=== PATIENT | male | born 1990 | race Caucasian/White ===

== ENCOUNTER 2020-10-12 09:15 | Emergency (ER) | payer BC, SELFPAY ==
[2020-10-12 09:37] VITALS: BP 109/68; PULSE 121; RESP 16; TEMP 37.2; O2SAT 96; BMI 35.7
--- NOTE | 2020-10-12 10:28 | ED_ITS ---
HPI - Animal Bite General Chief Complaint: Animal Bite Stated Complaint: dog bite Time Seen by Provider: 10/12/20 09:41 Source: patient, family and RN notes reviewed Mode of arrival: ambulatory Limitations: no limitations History of Present Illness HPI narrative: 30-year-old male is here today after sustaining animal bite. Patient reports that he was going home from fishing all night, saw a dog running towards him, he got scared and he kicked the dog to protect himself. The dog bit him in the genital area. Patient reports that he did not break the fabric of his pants, however he reports that he's bleeding. Patient does not know if the dog was vaccinated for rabies. Patient states that he looked like he was a family dog. He does not know the people but does not want to call them to find out if the dog was vaccinated. Patient does not want to get a rabies vaccine. Reports that he will have the animal Control investigate to see if the dog was vaccinated or not. Patient states that if the dog was not vaccinated then he will come back and to receive series of vaccines. Patient denies any other injuries. Mild scratches on lower extremities and upper arms, however [place] [employer] [place]. No other complaints offered. MD complaint: animal bite Onset (ago): hour(s) Animal: dog Description of animal: unknown animal Mechanism: bite Location: genitals (Right testicle) Pain description: sharp, burning and intermittent Severity scale (1-10): 8 Context: provoked (Patient states that he was scared and kicked the dog) Associated symptoms: none Related Data Patient tetanus UTD: No (Unknown) Previous Rx's Medication Instructions Recorded amoxicillin-pot clavulanate 1 tab PO BID #20 tab 10/12/20 [Augmentin] Allergies Allergy/AdvReac Type Severity Reaction Status Date / Time No Known Allergies Allergy Unverified 02/07/20 16:56 Review of Systems Review of Systems: Constitutional : No Weight loss, No Fever, No Chills, No Night Sweats, No Fatigue, No Malaise ENT/Mouth : No Hearing loss, No Ear Pain, No Nasal Congestion, No Sinus Pain, No Hoarseness, No sore throat, No Rhinorrhea, No Swallowing Difficulty Eyes: No Eye Pain, No Swelling, No Redness, No Foreign Body, No Discharge, No Vision Changes Cardiovascular : No Chest Pain, No SOB, No Dyspnea on Exertion, No Orthopnea, No Edema, No Palpitations Respiratory : No Cough, No Sputum, No Wheezing, No Smoke Exposure, No Dyspnea Gastrointestinal : No Nausea, No Vomiting, No Diarrhea, No Constipation, No abdominal Pain, No Hematochezia, No Melena Genitourinary : no irregular bleeding, No Dysuria, No Urinary Frequency, No Hematuria, No Urinary Incontinence, No Urgency, No Flank Pain, No Urinary Flow Changes, No Hesitancy Musculoskeletal : No joint pain, No Myalgias, No Joint Swelling Skin : No Skin Lesions, No rash, dog bite to right testicle, bruising head of the penis Neuro : No Weakness, No Numbness, No Paresthesias, No Loss of Consciousness, No Dizziness, No Headache Psych : No Anxiety/Panic, No Depression, No SI/HI/AH/VH, No Social Issues, Heme/Lymph: No Bruising, No Bleeding,No Lymphadenopathy Endocrine : No Polyuria, No Polydipsia, No Temperature Intolerance Yes all other systems are reviewed and are negative [facility] Past Medical History Medical History (Updated 10/12/20 @ 10:48 by Patricia Acevedo [facility]) No known health problems Social History Social History Advance Directives: No Advance Directives Information Provided: No Physical Exam Vital Signs: Vital Signs: Last Vital Signs Temp 99.0 F 10/12/20 09:37 Pulse 121 H 10/12/20 09:37 Resp 16 10/12/20 09:37 BP 109/68 10/12/20 09:37 Pulse Ox 96 10/12/20 09:37 Body Mass Index 35.7 Const: General: healthy appearing, no acute distress and well developed Nutritional Appearance: well nourished Orientation/consciousness: patient oriented x3 Neck: Neck: Yes normal visual inspection, Yes full ROM and Yes trachea midline Thyroid: Thyroid normal Resp: Auscultation: clear to auscultation bilaterally Cardio: Rate: regular rate Rhythm: regular rhythm GI: Inspection: Yes normal to inspection and No distended Palpation (GI): No hepatosplenomegaly present Auscultation: normal bowel sounds Skin: General skin exam: elasticity normal, turgor normal and dry skin Trauma: laceration (To centimetre laceration to right testicle) and puncture (pinpointed puncture to head of the penis) Neuro: General: patient oriented x3 Course Course Course Narrative: Three 1-year-old with animal bite to his genitals. Right testicle 2 cm lac. area cleaned with normal saline, edges approximated and Steri-Strips applied. Patient is refusing to get a rabies vaccine. He will follow-up with the animal control after they will investigate if the dog was vaccinated for rabies or not. If the dog was not vaccinated patient will seek rabies vaccine. Patient will get tetanus vacc as he does not remember when he received his last vaccine. Area to lower legs and arms cleaned. Patient was [place] last night [place] was [place] He was instructed to keep the area dry for the next 24 hours. Bacitracin was given to patient to put on the laceration. Head of the penis bruised, pinpointed area bleeding, no other injuries. Area cleaned and bacitracin applied. Patient will follow-up with PCP in 2-3 days. Sent him home with the antibiotic. Patient is able to urinate without any issues. Discharge Plan Discharge Clinical Impression: Dog bite Patient Disposition: Home, Self-Care Instructions: Animal Bite (ED) Additional Instructions: You were seen here today after sustaining a dog bite. The area was cleaned with sterile saline, Steri-Strips applied. Please keep an eye on the area, observe for any signs and symptoms of redness, foul smell or drainage. Please see you PCP in 2-3 days. Keep the area dry for the next 24 hours. You may apply bacitracin to the injured area. You were given a tetanus booster vaccine. If you find out that the dog was not vaccinated for rabies please come back to get there rabies series. I am sending you home with Augmentin to prevent infection. Prescriptions: New amoxicillin-pot clavulanate [Augmentin] 875-125 mg tablet 1 tab PO BID Qty: 20 RF: 0 Stand Alone Forms: Work/School Release Interventions: ED Discharge Assessment Last Done: 10/12/20 11:14 Discharge Date/Time: 10/12/20 11:16
[2020-10-12] MEDS: Amoxicillin/Potassium Clav 875 MG TABLET PO (10:58)
[2020-10-12] MEDS: Diphth,Pertus(ACell),Tet Adult 0.5 ML SYRINGE IM (10:59)
== END 2020-10-12 11:16 | disposition home or self-care (01) ==
PROVIDERS: Emergency Provider Emergency Medicine
DX: S30.873A Other superficial bite of scrotum and testes, initial encounter (principal); N50.811 Right testicular pain; W54.0XXA Bitten by dog, initial encounter; Y93.9 Activity, unspecified; Y92.9 Unspecified place or not applicable; Y99.9 Unspecified external cause status; Z79.899 Other long term (current) drug therapy
CPT/HCPCS: 90471; 90472; 90715; 96372; 99283; 99284